=== PATIENT | female | born 1955 | race African-American/Black ===

== ENCOUNTER → 2016-11-30 | Outpatient (CLI) | payer MEDICARE, OTHER, MEDICAID ==
--- NOTE | 2016-11-30 15:28 | RADIOLOGY REPORT (SQ) ---
EXAM DESCRIPTION: MRI HEAD COMBO COMPLETED DATE/TIME: 11/30/2016 2:38 pm REASON FOR STUDY: HEADACHE/HX OF BREAST CA R51 HEADACHE C50.919 MALIGNANT NEOPLASM OF UNSP SITE OF UNSPECIFIED FEMAL COMPARISON: None. TECHNIQUE: Multiplanar imaging includes noncontrasted T1, T2, FLAIR, and Diffusion with ADC map seq uences. Contrast enhanced T1 images. Images stored on PACS. CONTRAST TYPE AND DOSE: 15 mL Multihance. RENAL FUNCTION: GFR > 60. LIMITATIONS: None. FINDINGS: ANATOMY: No anomalies. Normal vascular flow voids. Pituitary fossa normal. CSF SPACES: Normal size and contour. No hemorrhage. CEREBRUM: A few high-signal intensity lesions scattered throughout the white matter on FLAIR imaging with distribution suggesting chronic microvascular ischemic change. Sulci and gyri normal in size and contour. No evidence of hemorrhage, mass or extraaxial fluid collection. No enhancing lesions. POSTERIOR FOSSA: No signal alteration. No hemorrhage. No edema, masses or mass effect. Internal audit ory canals, cerebello-pontine angles, mastoids normal. DIFFUSION: Negative for acute or subacute infarction. ORBITS: No masses. Globes normal. PARANASAL SINUSES: Fluid is noted in the alveolar recess of the left maxillary sinus. There is scatt ered mucosal thickening of the ethmoid sinuses. The paranasal sinuses are otherwise clear. Small am ount of fluid seen in the at left mastoid. OTHER: No other significant finding. IMPRESSION: NO ENHANCING LESIONS. MINIMAL MICROVASCULAR ISCHEMIC CHANGE. OTHERWISE NORMAL STUDY. Sm all amount of fluid seen within the left maxillary sinus in the mastoid air cells. Mild mucosal thic kening of the ethmoid sinuses. TECHNICAL DOCUMENTATION: JOB ID: [id number] [employer]- All Rights Reserved
== END ==
LOC: RAD 13:27
PROVIDERS: ATTEND Internal Medicine Medical Oncology
DX: C50.912 Malignant neoplasm of unspecified site of left female breast (principal); R51 Headache
CPT/HCPCS: 82565; 70553; A9577

== ENCOUNTER → 2016-12-06 | Outpatient (CLI) | payer MEDICARE, OTHER, MEDICAID ==
--- NOTE | 2016-12-06 17:16 | WOMENS IMAGING REPORT ---
EXAM DESCRIPTION: RIGHT DIAGNOSTIC MAMMO W/CAD; U/S BREAST UNILATERAL, COMPL COMPLETED DATE/TIME: 12/06/2016 1:24 pm; 12/06/2016 2:07 pm REASON FOR STUDY: C50.912; R97.8 C50.912 MALIGNANT NEOPLASM OF UNSPECIFIED SITE OF LEFT FEMAL COMPARISON: Multiple mammograms since 2009 TECHNIQUE: Standard craniocaudal, 90 mediolateral and mediolateral oblique images of the right dwain st recorded with digital acquisition. Post left mastectomy in 2009 Right breast and axilla ultrasound was also performed today LIMITATIONS: None. FINDINGS: BREAST: Right MASSES: No suspicious masses. CALCIFICATIONS: Stable benign calcifications in the central right breast. ARCHITECTURAL DISTORTION: None. DEVELOPING DENSITY: None. ASYMMETRY: None noted. OTHER: No skin thickening. No axillary lesions are identified by mammography Read with the assistance of CAD. .[facility] - R2 Cenova Version 1.3 .[facility] Imaging - R2 Cenova Version 1.3 .[facility] Imaging - R2 Cenova Version 2.4 .[facility] - R2 Cenova Version 2.4 .[facility] - R2 Order Processing Specialist Version 9.2 Ultrasound right breast and axilla: Ultrasound of the entire right breast and axilla was performed. No enlarged or worrisome right axill carlos lymph nodes. No focal breast parenchymal findings. No cysts. No masses. No worrisome acoustic absorption. IMPRESSION: No mammographic or sonographic evidence for malignancy right breast. BREAST DENSITY: c. The breasts are heterogeneously dense, which may obscure small masses. BIRAD: 2 Benign findings. RECOMMENDATION: RECOMMENDED FOLLOW UP: Please continue to yearly right breast mammograms in November. Consider tomosynthesis given heterogeneously dense tissue. SPECIFIC INTERVENTION/IMAGING/CONSULTATION RECOMMENDED:No additional intervention/ imaging/consultati on needed at this time. COMMUNICATION:Patient notified by letter COMMENT: The patient has been notified of the results by letter per MQSA requirements. Additional no tification policies are in place for contacting patient with suspicious or incomplete findings. Quality ID #[id number]: The [employer] recommends an annual screening mammogram for women aged 40 years or over. This facility utilizes a reminder system to ensure that all patients receive reminder letters, and/or direct phone calls for appointments. This includes reminders for routine scr eening mammograms, diagnostic mammograms, or other Breast Imaging Interventions when appropriate. Th is patient will be placed in the appropriate reminder system. The [employer] (ACR) has developed recommendations for screening MRI of the breast s in certain patient populations, to be used in conjunction with mammography. Breast MRI surveillanc e may be appropriate for women with more than 20% lifetime risk of developing breast cancer as deter mined by genetic testing, significant family history of the disease, or history of mantle radiation f or Hodgkins Disease. ACR Practice Guidelines 2008. TECHNICAL DOCUMENTATION: FINDING NUMBER: (1) ASSESSMENT: (1) JOB ID: [id number] [employer]- All Rights Reserved
--- NOTE | 2016-12-06 17:16 | WOMENS IMAGING REPORT ---
EXAM DESCRIPTION: RIGHT DIAGNOSTIC MAMMO W/CAD; U/S BREAST UNILATERAL, COMPL COMPLETED DATE/TIME: 12/06/2016 1:24 pm; 12/06/2016 2:07 pm REASON FOR STUDY: C50.912; R97.8 C50.912 MALIGNANT NEOPLASM OF UNSPECIFIED SITE OF LEFT FEMAL COMPARISON: Multiple mammograms since 2009 TECHNIQUE: Standard craniocaudal, 90 mediolateral and mediolateral oblique images of the right dwain st recorded with digital acquisition. Post left mastectomy in 2009 Right breast and axilla ultrasound was also performed today LIMITATIONS: None. FINDINGS: BREAST: Right MASSES: No suspicious masses. CALCIFICATIONS: Stable benign calcifications in the central right breast. ARCHITECTURAL DISTORTION: None. DEVELOPING DENSITY: None. ASYMMETRY: None noted. OTHER: No skin thickening. No axillary lesions are identified by mammography Read with the assistance of CAD. .[facility] - R2 Cenova Version 1.3 .[facility] Imaging - R2 Cenova Version 1.3 .[facility] Imaging - R2 Cenova Version 2.4 .[facility] [place] - R2 Cenova Version 2.4 .[facility] - R2 Food Service Driver Version 9.2 Ultrasound right breast and axilla: Ultrasound of the entire right breast and axilla was performed. No enlarged or worrisome right axill carlos lymph nodes. No focal breast parenchymal findings. No cysts. No masses. No worrisome acoustic absorption. IMPRESSION: No mammographic or sonographic evidence for malignancy right breast. BREAST DENSITY: c. The breasts are heterogeneously dense, which may obscure small masses. BIRAD: 2 Benign findings. RECOMMENDATION: RECOMMENDED FOLLOW UP: Please continue to yearly right breast mammograms in November. Consider tomosynthesis given heterogeneously dense tissue. SPECIFIC INTERVENTION/IMAGING/CONSULTATION RECOMMENDED:No additional intervention/ imaging/consultati on needed at this time. COMMUNICATION:Patient notified by letter COMMENT: The patient has been notified of the results by letter per MQSA requirements. Additional no tification policies are in place for contacting patient with suspicious or incomplete findings. Quality ID #[id number]: The [employer] recommends an annual screening mammogram for women aged 40 years or over. This facility utilizes a reminder system to ensure that all patients receive reminder letters, and/or direct phone calls for appointments. This includes reminders for routine scr eening mammograms, diagnostic mammograms, or other Breast Imaging Interventions when appropriate. Th is patient will be placed in the appropriate reminder system. The [employer] (ACR) has developed recommendations for screening MRI of the breast s in certain patient populations, to be used in conjunction with mammography. Breast MRI surveillanc e may be appropriate for women with more than 20% lifetime risk of developing breast cancer as deter mined by genetic testing, significant family history of the disease, or history of mantle radiation f or Hodgkins Disease. ACR Practice Guidelines 2008. TECHNICAL DOCUMENTATION: FINDING NUMBER: (1) ASSESSMENT: (1) JOB ID: [id number] [employer]- All Rights Reserved
== END ==
LOC: WI 13:00
PROVIDERS: ATTEND Internal Medicine Medical Oncology
DX: C50.912 Malignant neoplasm of unspecified site of left female breast (principal); R97.8 Other abnormal tumor markers
CPT/HCPCS: 76641; G0206

== ENCOUNTER → 2016-12-13 | Outpatient (CLI) | payer MEDICARE, OTHER, MEDICAID ==
--- NOTE | 2016-12-13 14:32 | RADIOLOGY REPORT (SQ) ---
EXAM DESCRIPTION: NM WHOLE BODY BONE SCAN COMPLETED DATE/TIME: 12/13/2016 2:01 pm REASON FOR STUDY: BREAST CANCER, BONE PAIN C50.912 MALIGNANT NEOPLASM OF UNSPECIFIED SITE OF LEFT F EMAL M89.8X9 OTHER SPECIFIED DISORDERS OF BONE, UNSPECIFIED SITE COMPARISON: 12/17/2014 RADIONUCLIDE AND DOSE: 20 millicuries Tc99m MDP. The route of agent administration: Intravenous. ADDITIONAL DRUGS AND DOSES: None. TECHNIQUE: Routine delayed images at 3 hours post radionuclide injection acquired of the bony skelet on including anterior and posterior whole-body projections and additional focused images as needed. LIMITATIONS: None. FINDINGS: BONES: Normal visualization without areas of photopenia or increased bony uptake of radiop harmaceutical. KIDNEYS: There is prominence of the upper calices, left more than right. OTHER: No other significant finding. IMPRESSION: 1. There is no evidence of metastatic disease to bone. 2. There is prominence of the upper calices bilaterally, left more so than the right. Is there clin ical history of urinary obstruction or perhaps chronic UPJ obstruction? COMMENT: PQRS 3570F: Current bone scan is compared with any available plain radiographs, prior bone scans, and CT/MRI. TECHNICAL DOCUMENTATION: JOB ID: [id number] [employer]- All Rights Reserved
== END ==
LOC: RAD 09:23
PROVIDERS: ATTEND Internal Medicine Medical Oncology
DX: C50.912 Malignant neoplasm of unspecified site of left female breast (principal); M89.8X9 Other specified disorders of bone, unspecified site
CPT/HCPCS: 78306; A9561; Q9969

== ENCOUNTER 2016-12-19 21:26 | Emergency (ER) | payer MEDICARE, OTHER, MEDICAID ==
[2016-12-20] MEDS ORDERED: LORATADINE 10 MG TABLET PO ONE (00:22)
[2016-12-20] MEDS ORDERED: IBUPROFEN 600 MG TABLET PO ONE (00:22)
[2016-12-20] MEDS ORDERED: AZITHROMYCIN 250 MG TABLET PO ONE (00:22)
--- NOTE | 2016-12-20 00:26 | ER Document Report ---
ED General - General Chief Complaint: L earache Stated Complaint: EAR PAIN Time Seen by Provider: 12/19/16 23:37 Notes: Patient is a 61 year old female who presents with several days of progressively worsening left ear pain. Does describe as a severe, constant, throbbing pain. Nothing improves or worsens the pain. States that she saw ENT earlier today who told her that there is nothing wrong with her ear. Denies any history of similar symptoms in the past. Denies any history of loss. No fever or constitutional symptoms. TRAVEL OUTSIDE OF THE [place] IN LAST 30 DAYS: No - Related Data Allergies/Adverse Reactions: Penicillins Allergy (Verified 04/07/14 16:24) Past Medical History - General Information source: Patient - Social History Smoking Status: Never Smoker Frequency of alcohol use: None Drug Abuse: None Lives with: Family Family History: Reviewed & Not Pertinent Renal/ Medical History: Denies: Hx Peritoneal Dialysis Past Surgical History: Reports: Hx Breast Surgery - left mastectomy - Immunizations Hx Diphtheria, Pertussis, Tetanus Vaccination: - unknown Review of Systems - Review of Systems Notes: Constitutional: Negative for fever. HENT: Positive for left ear pain Eyes: Negative for visual changes. Cardiovascular: Negative for chest pain. Respiratory: Negative for shortness of breath. Gastrointestinal: Negative for abdominal pain, vomiting or diarrhea. Genitourinary: Negative for dysuria. Musculoskeletal: Negative for back pain. Skin: Negative for rash. Neurological: Negative for headaches, weakness or numbness. 10 point ROS negative except as marked above and in HPI. Physical Exam - Vital signs Vitals: Temp Pulse Resp BP Pulse Ox 98.4 F 77 16 148/84 H 100 12/20/16 00:32 12/20/16 00:32 12/20/16 00:32 12/20/16 00:32 12/20/16 00:32 Interpretation: Hypertensive Notes: PHYSICAL EXAMINATION: GENERAL: Well-appearing, well-nourished and in no acute distress. HEAD: Atraumatic, normocephalic. EYES: sclera anicteric, conjunctiva are normal. ENT: Moist mucous membranes. TMs are bulging bilaterally but the left TM has a purulent effusion with Erythema over the tympanic membrane. NECK: Normal range of motion LUNGS: Normal work of breathing HEART: 2+ radial pulses bilaterally EXTREMITIES: no pitting or edema. No cyanosis. NEUROLOGICAL: No focal neurological deficits. Moves all extremities spontaneously and on command. PSYCH: Normal mood, normal affect. SKIN: Warm, Dry, normal turgor, no rashes or lesions noted. Course - Re-evaluation Re-evalutation: 12/20/16 00:23 Patient presents with a history and exam findings consistent with an acute left otitis media. The TMs are bulging bilaterally but the left TM also has a purulent effusion with erythema on the tympanic membrane. No evidence of otitis externa. No pain over the mastoids. She will be started on azithromycin given her penicillin allergy, ibuprofen and loratadine as I suspect an allergic component given the time of year and patient's history. At this time will discharge with return precautions and follow-up recommendations. Verbal discharge instructions given a the bedside and opportunity for questions given. Medication warnings reviewed. Patient is in agreement with this plan and has verbalized understanding of return precautions and the need for primary care follow-up in the next 24-72 hours. - Vital Signs Vital signs: Temp Pulse Resp BP Pulse Ox 98.4 F 77 16 148/84 H 100 12/20/16 00:32 12/20/16 00:32 12/20/16 00:32 12/20/16 00:32 12/20/16 00:32 Discharge - Discharge Clinical Impression: Left otitis media Qualifiers: Otitis media type: suppurative Chronicity: acute Recurrence: not specified as recurrent Spontaneous tympanic membrane rupture: without spontaneous rupture Qualified Code(s): H66.002 - Acute suppurative otitis media without spontaneous rupture of ear drum, left ear Condition: Good Disposition: HOME, SELF-CARE Additional Instructions: You have a left-sided ear infection. Please take the antibiotics as prescribed. You should begin taking loratadine 10 mg daily as this will help with your allergies and may help control recurrent ear infections. Please return if you develop worsening pain, fever greater than 101F, or any other symptoms that are worrisome to you. Prescriptions: Azithromycin 500 mg PO DAILY #4 tablet Referrals: ALEX MERRITT, MALIKC [Primary Care Provider] - Follow up as needed
[2016-12-20 00:33] VITALS: BP 148/84
== END 2016-12-20 00:33 | disposition home or self-care (01) ==
LOC: ER 21:26
DX: H66.002 Acute suppurative otitis media without spontaneous rupture of ear drum, left ear (principal); H92.02 Otalgia, left ear; Z88.0 Allergy status to penicillin
CPT/HCPCS: 99282; A9270 ×3

== ENCOUNTER → 2017-01-08 | Outpatient (CLI) | payer MEDICARE, OTHER, MEDICAID ==
--- NOTE | 2017-01-09 09:16 | RADIOLOGY REPORT (SQ) ---
EXAM DESCRIPTION: PET CT SKULL/THIGH COMPLETED DATE/TIME: 01/08/2017 9:52 pm REASON FOR STUDY: BREAST CANCER C50.912 MALIGNANT NEOPLASM OF UNSPECIFIED SITE OF LEFT FEMAL M89.8X 9 OTHER SPECIFIED DISORDERS OF BONE, UNSPECIFIED SITE COMPARISON: 12/21/2014. RADIONUCLIDE AND DOSE: 12.0 mCi F18 FDG The route of agent administration: Intravenous FASTING BLOOD SUGAR: 99 mg/dl CONTRAST TYPE AND DOSE: No CT contrast given. TECHNIQUE: Blood glucose level was verified. Above dose of FDG was injected intravenously. 2-D seg mented attenuation correction images were obtained from the base of the skull to the midthighs. Nonc ontrast CT images were obtained for attenuation correction and fusion with emission images. CT image s were performed without oral or intravenous contrast and are not sensitive for parenchymal lesions. A series of overlapping emission PET images were obtained. Images reviewed and manipulated at [facility] work station by the radiologist. Images stored on PACS. LIMITATIONS: None. FINDINGS: HEAD AND NECK: No areas of abnormal metabolic activity in the soft tissues of the head and neck. CHEST: No areas of abnormal metabolic activity in the chest. ABDOMEN AND PELVIS: No areas of abnormal metabolic activity in the abdomen or pelvis. Expected physi ologic activity is present in the genitourinary system and bowel. PROXIMAL LOWER EXTREMITIES: No areas of abnormal metabolic activity in the soft tissues of the lower extremities. BONES: No abnormal metabolic activity in the visualized skeleton. ADDITIONAL CT FINDINGS: No additional significant findings on the noncontrast CT images. Left mastec ishan and axillary dissection. OTHER: No other significant findings. IMPRESSION: UNREMARKABLE PET-CT. NO EVIDENCE OF RECURRENT DISEASE OR METASTASIS. TECHNICAL DOCUMENTATION: JOB ID: [id number]- All Rights Reserved
== END ==
LOC: RAD 19:08
PROVIDERS: ATTEND Internal Medicine Medical Oncology
DX: C50.912 Malignant neoplasm of unspecified site of left female breast (principal); M89.8X9 Other specified disorders of bone, unspecified site
CPT/HCPCS: 78815; A9552

== ENCOUNTER 2017-05-28 21:39 | Emergency (ER) | payer MEDICARE, OTHER, MEDICAID ==
[2017-05-28] MEDS ORDERED: OXYCODONE-ACETAMINOPHEN 5-325 MG TABLET PO ONE (22:57)
--- NOTE | 2017-05-28 23:03 | ER Document Report ---
ED Skin Rash/Insect Bite/Abscs - General Chief Complaint: Skin Problem Stated Complaint: POSSIBLE RASH Time Seen by Provider: 05/28/17 22:13 Mode of Arrival: Ambulatory Information source: Patient Notes: Patient is a 61-year-old black female comes emergency room complaining of left sided chest rash. Patient states she went to her primary care which is a walk- in clinic 1 week ago and they diagnosed her with shingles and placed her on acyclovir which she is still currently taking without much relief. Patient states that the area still very sensitive and very itchy and she has a hard time sleeping at night. She also states they did not put her on any gabapentin or any pain medication for this presentation. She has never had shingles in her life before and this is starting to bother her every day life. 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 TRAVEL OUTSIDE OF THE [place] IN LAST 30 DAYS: No - HPI Patient complains to provider of: Skin rash/lesion Onset: Last week Onset/Duration: Sudden, Worse Quality of pain: Burning, Throbbing, Other - Itching Severity: Moderate Skin Character: Macules, Papules, Patchy, Petechial Skin Temperature: Warm Quality of rash: Itchy, Painful Identify cause: Yes - Shingles Exacerbated by: Other - Movement touching of close etc. Relieved by: Denies Similar symptoms previously: Yes Recently seen / treated by doctor: Yes - Related Data Allergies/Adverse Reactions: Penicillins Allergy (Verified 04/07/14 16:24) Past Medical History - General Information source: Patient - Social History Smoking Status: Never Smoker Cigarette use (# per day): No Chew tobacco use (# tins/day): No Smoking Education Provided: No Frequency of alcohol use: None Drug Abuse: None Family History: Reviewed & Not Pertinent Patient has suicidal ideation: No Patient has homicidal ideation: No Renal/ Medical History: Denies: Hx Peritoneal Dialysis Past Surgical History: Reports: Hx Breast Surgery - left mastectomy - Immunizations Hx Diphtheria, Pertussis, Tetanus Vaccination: - unknown Review of Systems - Review of Systems Constitutional: No symptoms reported EENT: No symptoms reported Cardiovascular: No symptoms reported Respiratory: No symptoms reported Gastrointestinal: No symptoms reported Genitourinary: No symptoms reported Female Genitourinary: No symptoms reported Musculoskeletal: No symptoms reported Skin: Rash Hematologic/Lymphatic: No symptoms reported Neurological/Psychological: No symptoms reported, Tingling -: Yes All other systems reviewed and negative Physical Exam - Vital signs Vitals: Temp Pulse Resp BP Pulse Ox 98.8 F 78 22 H 152/75 H 97 05/28/17 21:51 05/28/17 21:51 05/28/17 21:51 05/28/17 21:51 05/28/17 21:51 Interpretation: Hypertensive - General General appearance: Alert, Other - Respiratory Respiratory status: No respiratory distress Chest status: Nontender Breath sounds: Normal. No: Decreased air movement, Nonproductive cough, Productive cough, Rales, Rhonchi, Stridor, Wheezing, Other - Cardiovascular Rhythm: Regular Heart sounds: Normal auscultation Murmur: No - Neurological Neuro grossly intact: Yes Cognition: Normal Orientation: AAOx4 Filippo Coma Scale Eye Opening: Spontaneous [place] Coma Scale Verbal: Oriented Filippo Coma Scale Motor: Obeys Commands Filippo Coma Scale Total: 15 Speech: Normal - Skin Skin Temperature: Warm Skin Moisture: Dry Skin Color: Cyanotic Skin irregularity: Rash Character of irregularity: Maculopapular, Other - Examination of patient's left lower lateral chest shows patient at the patchy distribution of maculopapular rash that has clear vesicles in some areas and dried ruptured vesicles and others. Very tender to touch. Runs along the dermatome coming down to the lower left rib area. Definite presentation of shingles noted. Irregularity with: Tenderness Course - Vital Signs Vital signs: Temp Pulse Resp BP Pulse Ox 98.8 F 78 22 H 152/75 H 97 05/28/17 21:51 05/28/17 21:51 05/28/17 21:51 05/28/17 21:51 05/28/17 21:51 - Transfer of Care Notes: 05/28/17 23:03 Patient is still currently on acyclovir so we will leave her stay on that. I will place her on gabapentin 300 mg at night to start with. And some pain medication. I have recommended to her to go back to her primary care which is the walk-in clinic have them for reevaluation and for further pain control. Discharge - Discharge Clinical Impression: Shingles rash Qualifiers: Herpes zoster complications: without complications Qualified Code(s): B02.9 - Zoster without complications Condition: Good Disposition: HOME, SELF-CARE Instructions: Acetaminophen, Shingles ([facility]) Additional Instructions: Home and rest. As we have indicated continue with the medication were placed on by the your primary physician. This is an antiviral which may help with reducing the intensity of the outbreak as well as shortening the duration. I will place her on pain medication and on another medication that should help with the discomfort called gabapentin we have started with 3 mg at night and highly suggest that you follow-up with your primary care provider within the next 48 hours for reevaluation and possible increased dosage of the gabapentin. Should you have any concerns or problems return to ER for a recheck. As I discussed with you wash her hands frequently as long as the area is covered or not contagious. I would however not do any patient care for the next 4-5 days. Also when these areas try very well you can place a patch called Lidoderm on top of it which will help with the nerve ending discomfort however they must be completely 100% dry before you do this. You may want to discuss this with your primary care. Prescriptions: Gabapentin 300 mg PO QHS #20 capsule Hydroxyzine HCl 50 mg PO TID PRN #20 tablet PRN Reason: Oxycodone HCl/Acetaminophen [Percocet 7.5-325 mg Tablet] 1 each PO ASDIR PRN # 20 tablet PRN Reason: Referrals: ENRIQUE ALVARADO MD [Primary Care Provider] - Follow up as needed
[2017-05-28] MEDS ORDERED: HYDROCODONE/ACETAMINOPHEN 5-325 MG 6 TAB/DSPK PO PRN (23:22)
[2017-05-28 23:23] VITALS: BP 155/83
== END 2017-05-28 23:29 | disposition home or self-care (01) ==
LOC: ER 21:39
DX: B02.9 Zoster without complications (principal); Z88.0 Allergy status to penicillin
CPT/HCPCS: 99283; A9270 ×2

== ENCOUNTER 2017-11-08 21:50 | Emergency (ER) | payer MEDICARE, OTHER, MEDICAID ==
[2017-11-08 22:07] VITALS: BP 159/76
--- NOTE | 2017-11-08 23:37 | ER Document Report ---
HPI - HPI Patient complains to provider of: right hand pain Pain Level: 4 Context: Patient is a 62-year-old female who comes emergency department for chief complaint of right hand and right wrist pain. Pain is been present for 2 weeks , unsure of injury, seen by primary care and placed on ibuprofen, states she has been taking it without relief. She denies history of the same, she is left- handed. She denies any other complaints. She denies any daily medications otherwise. - REPRODUCTIVE Reproductive: DENIES: : - MUSCULOSKELETAL Musculoskeletal: REPORTS: Extremity pain - R wrist/thumb Past Medical History - General Information source: Patient - Social History Smoking Status: Never Smoker Chew tobacco use (# tins/day): No Frequency of alcohol use: None Drug Abuse: None Lives with: Family Family History: Reviewed & Not Pertinent Patient has suicidal ideation: No Patient has homicidal ideation: No - Medical History Medical History: Negative Renal/ Medical History: Denies: Hx Peritoneal Dialysis Past Surgical History: Reports: Hx Breast Surgery - left mastectomy - Immunizations Immunizations up to date: Yes Hx Diphtheria, Pertussis, Tetanus Vaccination: Yes - unknown Vertical Provider Document - CONSTITUTIONAL General Appearance: WD/WN, No Apparent Distress - INFECTION CONTROL TRAVEL OUTSIDE OF THE [place] IN LAST 30 DAYS: No - HEENT HEENT: Atraumatic, Normal ENT Exam, Normocephalic - NECK Neck: Normal Inspection - RESPIRATORY Respiratory: Breath Sounds Normal, No Respiratory Distress - CARDIOVASCULAR Cardiovascular: Regular Rate, Regular Rhythm - GI/ABDOMEN Gastrointestinal: Abdomen Soft, Abdomen Non-Tender - BACK Back: Normal Inspection - MUSCULOSKELETAL/EXTREMETIES Musculoskeletal/Extremeties: Tender - mild tenderness in the right wrist generally, but no snuffbox tenderness, no swelling, normal ROM; tenderness mainly over the thenar area; no abnormal erythema; normal N/V exam Course - Re-evaluation Re-evalutation: Exam does not show snuffbox tenderness, no evidence of infection, no neurological deficits or concerning findings, x-ray showing arthritis but no fracture. Will continue to conservative measures, discussed these in detail with patient, discussed follow-up and return precautions, patient states understanding and agreement. - Vital Signs Vital signs: Temp Pulse Resp BP Pulse Ox 98.1 F 75 20 159/76 H 100 11/08/17 22:05 11/08/17 22:05 11/08/17 22:05 11/08/17 22:05 11/08/17 22:05 Discharge - Discharge Clinical Impression: Right hand pain, Right wrist pain Condition: Stable Disposition: HOME, SELF-CARE Additional Instructions: The x-rays show arthritis in your hand/wrist, this is probably the cause of the inflammation and pain that you have currently. Recommendation is to take up to 800 mg of ibuprofen up to 3 times daily (do this with food and drink plenty of water to avoid stomach or kidney irritation) , apply ice to the hand/wrist 3-4 times a day for 10-15 minutes, wear the supportive brace, and rest the wrist. Follow-up with primary care for additional evaluation and management. Return for any concerning symptoms including redness, swelling, severe pain, or any other concerning symptoms.
--- NOTE | 2017-11-09 00:08 | RADIOLOGY REPORT (SQ) ---
EXAM DESCRIPTION: XR HAND 3 OR MORE VIEWS, XR WRIST 3 OR MORE VIEWS CLINICAL HISTORY: 62 years Female, pain, ?injury COMPARISON: None. Findings: Mild osteoarthritis involves the radiocarpal joint and first carpometacarpal joint.. Bones, joints, and soft tissues of the XR HAND /WRIST RIGHT 6V appear otherwise intact. IMPRESSION: No acute findings. Mild osteoarthritis.
[2017-11-09] MEDS ORDERED: HYDROCODONE/ACETAMINOPHEN 5-325 MG (6 TAB/ER DISP) PO PRN (00:26)
== END 2017-11-09 00:41 | disposition home or self-care (01) ==
LOC: ER 21:50
DX: M79.641 Pain in right hand (principal); M25.531 Pain in right wrist
CPT/HCPCS: 99283; 73130; 73110; A9270

== ENCOUNTER 2018-05-17 03:07 | Emergency (ER) | payer MEDICARE, OTHER, MEDICAID ==
[2018-05-17 03:13] VITALS: BP 170/56
--- NOTE | 2018-05-17 03:38 | ER Document Report ---
ED General - General Chief Complaint: Hand Swelling Stated Complaint: HAND SWOLLEN Time Seen by Provider: 05/17/18 03:17 TRAVEL OUTSIDE OF THE U.S. IN LAST 30 DAYS: No - HPI Pain Level: 5 Notes: 62-year-old female with past medical history of breast cancer status post mastectomy and lymphadenectomy in 2011 presents to the emergency department for left upper extremity swelling that started 2 days ago but became worse yesterday. She states she had one previous episode of lymphedema shortly after her mastectomy but has had no issues with her arm since. She does endorse swelling, pain with movement. She denies warmth to the extremity, limited range of motion. She denies dizziness, lightheadedness, headache, dyspnea, palpitations, chest pain, nausea, vomiting, lower extremity edema. - Related Data Allergies/Adverse Reactions: Penicillins Allergy (Verified 11/08/17 23:26) Past Medical History - General Information source: Patient - Social History Smoking Status: Never Smoker Frequency of alcohol use: None Drug Abuse: None Family History: Reviewed & Not Pertinent Renal/ Medical History: Denies: Hx Peritoneal Dialysis Past Surgical History: Reports: Hx Breast Surgery - left mastectomy - Immunizations Immunizations up to date: Yes Hx Diphtheria, Pertussis, Tetanus Vaccination: Yes - unknown Review of Systems - Review of Systems Constitutional: See HPI EENT: See HPI Cardiovascular: See HPI Respiratory: See HPI Gastrointestinal: See HPI Genitourinary: No symptoms reported Female Genitourinary: No symptoms reported Musculoskeletal: No symptoms reported Skin: See HPI Hematologic/Lymphatic: No symptoms reported Neurological/Psychological: No symptoms reported Physical Exam - Vital signs Vitals: Temp Pulse Resp BP Pulse Ox 97.6 F 74 15 170/56 H 98 05/17/18 03:12 05/17/18 03:12 05/17/18 03:12 05/17/18 03:12 05/17/18 03:12 - Notes Notes: Reviewed vital signs and nursing note as charted by RN. CONSTITUTIONAL: Well-appearing, well-nourished, acting appropriately for age HEAD: Normocephalic, atraumatic, no swelling EYES: PERRL, Conjunctivae clear, no drainage, EOMI, no scleral icterus ENT: External ears without lesions, External auditory canal is patent, TMs without erythema, landmarks clear and well visualized, no rhinorrhea, Pharynx without erythema or lesions, no tonsillar hypertrophy, airway patent, mucous membranes pink and moist NECK: Supple, no cervical lymphadenopathy, no masses CARD: Regular rate and rhythm, no murmurs, no rubs, no gallops, capillary refill < 2 seconds, symmetric pulses RESP: The lungs are clear to auscultation bilaterally, no wheezing, no rales, no rhonchi. Respiratory rate and effort are normal, normal chest excursion. No respiratory distress, no retractions, no stridor, no nasal flaring, no accessory muscle use. ABD/GI: Normal bowel sounds, non-distended, soft, non-tender, no rebound, no guarding, no palpable organomegaly EXT: Left upper extremity swelling of the entire extremity, nonpitting, no erythema of the extremity, mild tenderness to palpation, no tenderness to palpation along the superficial veins. Normal ROM in all joints, non-tender to palpation, no effusions SKIN: Normal color for age and race, warm, dry, good turgor, no acute lesions noted NEURO: No facial asymmetry, moves all extremities equally, motor and sensory function intact exam Course - Re-evaluation Re-evalutation: 05/17/18 04:00 Upper extremity swelling most likely due to lymphedema. Patient's compartments were soft, no evidence of superficial venous tenderness, Refill less than 2 seconds, strong radial pulse, no erythem, skin was warm and dry. Do not believe this is cellulitis. Because of the patient's history I we want to rule out DVT. Because we do not have orthotics prosthetics technician currently in-house the patient was given 3 options: One is to stay in the emergency department for the next 3+ hours and we have the orthotics prosthetics technician to arrive and get the study; another is to discharge from the urgency department and check back in later this morning when the orthotics prosthetics technician arrives, but patient was warned that she could incur an additional co-pay; and finally she was given the option for a prescription to get an urgent/emergent study at [facility] this morning. Because the patient has insurance she has elected to get a prescription for a left upper extremity venous Doppler at [facility]. She said she will call this morning and follow-up and make an appointment. 05/17/18 04:03 - Vital Signs Vital signs: Temp Pulse Resp BP Pulse Ox 97.6 F 74 15 170/56 H 98 05/17/18 03:12 05/17/18 03:12 05/17/18 03:12 05/17/18 03:12 05/17/18 03:12 Discharge - Discharge Clinical Impression: Lymphedema Condition: Good Disposition: HOME, SELF-CARE Instructions: Lymphedema ([facility]) Additional Instructions: You were seen in the emergency department this evening for swelling in your left arm. Believe you have lymphedema but we need to ensure that you do not have a DVT. Because we do not have orthotics prosthetics technician in the hospital right now we are writing her prescription for a Doppler ultrasound of her left upper extremity at [facility]. Please call them when they open this morning and let them know you are seen in the emergency department and referred for a left upper extremity venous Doppler. If you become acutely short of breath, or unable to move your arm, have severe pain out of proportion to your activity, her arm starts to turn blue please immediately return to the emergency department. Forms: Follow-Up Outpatient Testing Referrals: CHERELLE MOODY MD [Primary Care Provider] - Follow up as needed
== END 2018-05-17 04:25 | disposition home or self-care (01) ==
LOC: ER 03:07
DX: I89.0 Lymphedema, not elsewhere classified (principal); Z85.3 Personal history of malignant neoplasm of breast; Z90.12 Acquired absence of left breast and nipple; Z88.0 Allergy status to penicillin
CPT/HCPCS: 99283

== ENCOUNTER → 2018-05-23 | Outpatient (CLI) | payer MEDICARE, OTHER, MEDICAID ==
--- NOTE | 2018-05-24 10:01 | XCELERA REPORT ---
[address] [address] Upper Extremity Venous Evaluation Name: BRIA CHAMBERS Age: 62 yrs Gender: Female : 1955 Patient Status: Outpatient Patient Location: Study Date: 05/23/2018 01:25 PM Procedure: Unilateral duplex scan of the left upper extremity veins was performed, including responses to compression and other maneuvers. Reason For Study: LYDIA RIBERA Ordering Physician: JOSH MARIA PA-C Performed By: Zander Schmitt Left Sided Venous Evaluation Normal vessel filling wall to wall, compression and augmentation as well as Colour flow down to the forearm veins. Interpretation Summary No duplex evidence of DVT or obstruction in the left upper extremity. : JOSH MARIA PA-C > Pawel Rojas
== END ==
LOC: SP 12:49
PROVIDERS: ATTEND Physician Assistant
DX: R22.32 Localized swelling, mass and lump, left upper limb (principal)
CPT/HCPCS: 93971

== ENCOUNTER 2018-06-18 17:54 | Emergency (ER) | payer MEDICARE, OTHER, MEDICAID ==
[2018-06-18 18:01] VITALS: BP 129/69
--- NOTE | 2018-06-18 19:49 | ER Document Report ---
ED General - General Chief Complaint: Arm Pain Stated Complaint: LEFT ARM PAIN Time Seen by Provider: 06/18/18 18:57 Notes: 62-year-old female with past medical history of breast cancer status post mastectomy and lymphadenectomy in 2011 presents to the emergency department for left upper extremity swelling that has been persistent since her last visit here about 1 month ago. She was sent for a venous Doppler ultrasound after her last visit and the results was negative for DVT. She states that the swelling has not gone down at all since her last visit and she has been in pain but decided that was finally time to get re-seen. She denies fevers, chills, nausea. She endorses fatigue. She denies chest pain or shortness of breath. Endorses swelling and pain in her left upper extremity. She does not have a primary care doctor. TRAVEL OUTSIDE OF THE [place] IN LAST 30 DAYS: No - Related Data Allergies/Adverse Reactions: Penicillins Allergy (Verified 11/08/17 23:26) Past Medical History - General Information source: Patient - Social History Smoking Status: Never Smoker Family History: Reviewed & Not Pertinent Patient has suicidal ideation: No Patient has homicidal ideation: No Renal/ Medical History: Denies: Hx Peritoneal Dialysis Past Surgical History: Reports: Hx Breast Surgery - left mastectomy - Immunizations Immunizations up to date: Yes Hx Diphtheria, Pertussis, Tetanus Vaccination: Yes - unknown Review of Systems - Review of Systems Constitutional: See HPI EENT: No symptoms reported Cardiovascular: See HPI Respiratory: See HPI Gastrointestinal: See HPI Genitourinary: No symptoms reported Female Genitourinary: No symptoms reported Musculoskeletal: No symptoms reported Skin: No symptoms reported Hematologic/Lymphatic: No symptoms reported Neurological/Psychological: See HPI Physical Exam - Vital signs Vitals: Temp Pulse Resp BP Pulse Ox 97.9 F 87 16 129/69 H 98 06/18/18 17:59 06/18/18 17:59 06/18/18 17:59 06/18/18 17:59 06/18/18 17:59 - Notes Notes: Reviewed vital signs and nursing note as charted by RN. CONSTITUTIONAL: Well-appearing, well-nourished, acting appropriately for age HEAD: Normocephalic, atraumatic, no swelling EYES: PERRL, Conjunctivae clear, no drainage, EOMI, no scleral icterus ENT: External ears without lesions, External auditory canal is patent, TMs without erythema, landmarks clear and well visualized, no rhinorrhea, Pharynx without erythema or lesions, no tonsillar hypertrophy, airway patent, mucous membranes pink and moist NECK: Supple, no cervical lymphadenopathy, no masses CARD: Regular rate and rhythm, no murmurs, no rubs, no gallops, capillary refill < 2 seconds, symmetric pulses RESP: The lungs are clear to auscultation bilaterally, no wheezing, no rales, no rhonchi. Respiratory rate and effort are normal, normal chest excursion. No respiratory distress, no retractions, no stridor, no nasal flaring, no accessory muscle use. ABD/GI: Normal bowel sounds, non-distended, soft, non-tender, no rebound, no guarding, no palpable organomegaly EXT: Normal ROM in all joints, non-tender to palpation, no effusions, 2+ nonpitting edema entire left upper extremity. Left upper extremity is warm and dry, strong radial pulse, compartments are soft, no erythema. SKIN: Normal color for age and race, warm, dry, good turgor, no acute lesions noted NEURO: No facial asymmetry, moves all extremities equally, motor and sensory function intact Course - Re-evaluation Re-evalutation: 06/18/18 19:49 8-year-old female with history of breast cancer status post mastectomy and lymphadenectomy 2011 presents to the emergency department for left upper extremity swelling. She was seen here 1 month ago for the same thing and her swelling has never gone down since her last visit. She presents here because she just got sick of the pain and swelling, she has been unable to sleep, as there has been no change in acuity. Strong peripheral pulses good cap refill, compartments are soft, no erythema to indicate cellulitis, she had a venous Doppler of her left upper extremity after the last visit which was negative for DVT. At this time I feel patient needs to follow-up with her oncologist, Dr. Greenberg for potential further imaging. This most likely represents lymphedema that is not resolved. 06/18/18 20:02 06/18/18 20:03 - Vital Signs Vital signs: Temp Pulse Resp BP Pulse Ox 97.9 F 87 16 129/69 H 98 06/18/18 17:59 06/18/18 17:59 06/18/18 17:59 06/18/18 17:59 06/18/18 17:59 Discharge - Discharge Clinical Impression: Lymphedema Condition: Good Disposition: HOME, SELF-CARE Additional Instructions: You were seen in the emergency department this evening for swelling of your left upper extremity. We have diagnosed with lymphedema. It is reassuring because you do not have a DVT based on the ultrasound he received a couple weeks ago. It is important to follow-up with your cancer doctor to assess the need for further imaging. If you develop fever, chills, redness in your extremity, your extremity becomes hot, you develop severe pain, or you pass out please immediately return to the emergency department. Referrals: JOSH MARIA PA-C [Emergency Provider] - Follow up as needed
[2018-06-18] MEDS ORDERED: IBUPROFEN 600 MG TABLET PO ONE (20:05)
[2018-06-18] MEDS ORDERED: ACETAMINOPHEN 325 MG TABLET PO ONE (20:05)
[2018-06-18] MEDS ORDERED: HYDROCODONE/ACETAMINOPHEN 5-325 MG (6 TAB/ER DISP) PO PRN (20:06)
== END 2018-06-18 20:22 | disposition home or self-care (01) ==
LOC: ER 17:54
DX: I89.0 Lymphedema, not elsewhere classified (principal); R53.83 Other fatigue; Z85.3 Personal history of malignant neoplasm of breast; Z90.10 Acquired absence of unspecified breast and nipple; Z90.89 Acquired absence of other organs; Z88.0 Allergy status to penicillin
CPT/HCPCS: 99283; A9270 ×3

== ENCOUNTER → 2018-06-24 | Outpatient (CLI) | payer MEDICARE, OTHER ==
--- NOTE | 2018-06-25 15:27 | RADIOLOGY REPORT (SQ) ---
EXAM DESCRIPTION: PET CT SKULL/THIGH COMPLETED DATE/TIME: 06/24/2018 10:27 pm REASON FOR STUDY: BREAST CANCER C50.912 MALIGNANT NEOPLASM OF UNSPECIFIED SITE OF LEFT FEMAL COMPARISON: PET-CT 01/08/2017 Bone scan 12/13/2016 MRI brain 11/30/2016 RADIONUCLIDE AND DOSE: 9.3 mCi F18 FDG The route of agent administration: Intravenous FASTING BLOOD SUGAR: 100 mg/dl CONTRAST TYPE AND DOSE: No CT contrast given. TECHNIQUE: Blood glucose level was verified. Above dose of FDG was injected intravenously. 2-D seg mented attenuation correction images were obtained from the base of the skull to the midthighs. Nonc ontrast CT images were obtained for attenuation correction and fusion with emission images. CT image s were performed without oral or intravenous contrast and are not sensitive for parenchymal lesions. A series of overlapping emission PET images were obtained. Images reviewed and manipulated at [facility] work station by the radiologist. Images stored on PACS. LIMITATIONS: None. FINDINGS: HEAD AND NECK: No areas of abnormal metabolic activity in the soft tissues of the head and neck. CHEST: No areas of abnormal metabolic activity in the chest. ABDOMEN AND PELVIS: No areas of abnormal metabolic activity in the abdomen or pelvis. Expected physi ologic activity is present in the genitourinary system and bowel. PROXIMAL LOWER EXTREMITIES: No areas of abnormal metabolic activity in the soft tissues of the lower extremities. BONES: No abnormal metabolic activity in the visualized skeleton. ADDITIONAL CT FINDINGS: Right arm central line tip superior vena cava. Left mastectomy and axillary dissection. Post appendectomy. OTHER: No other significant findings. IMPRESSION: No hypermetabolic lesions worrisome for recurrent breast cancer. TECHNICAL DOCUMENTATION: JOB ID: [id number]- All Rights Reserved Reading location - IP/workstation name: [email or web address]
== END ==
LOC: RAD 18:36
PROVIDERS: ATTEND Internal Medicine Medical Oncology
DX: C50.912 Malignant neoplasm of unspecified site of left female breast (principal)
CPT/HCPCS: 78815; A9552

== ENCOUNTER → 2019-05-29 | Outpatient (CLI) | payer MEDICARE, OTHER, MEDICAID ==
--- NOTE | 2019-05-29 14:12 | WOMENS IMAGING REPORT ---
EXAM DESCRIPTION: BONE DENSITY HIP/SPINE COMPLETED DATE/TIME: 05/29/2019 2:00 pm REASON FOR STUDY: M81.0 AGE-RELATED OSTEOPOROSIS WITHOUT CURRENT PATHOLOGICAL FRACTURE M81.0 AGE-RE LATED OSTEOPOROSIS W/O CURRENT PATHOLOGICAL FRAC Z12.31 ENCNTR SCREEN MAMMOGRAM FOR MALIGNANT NEOPLA OF [facility] COMPARISON: None. TECHNIQUE: Dual-Energy X-ray Absorptiometry (DEXA) of the AP Spine and Hip. LIMITATIONS: None. FINDINGS: LUMBAR SPINE: The bone mineral density (BMD) measured from L1-L4 in the AP projection correlates with a T-score of +0.3, which is normal as defined by the World Health Organization. BMD Change vs Baseline: N/A HIP: The bone mineral density (BMD) measured in the left femoral neck at the hip correlates with a T-score of 0, which is normal as defined by the World Health Organization. BMD Change vs Baseline: N/A 10 year Fracture Risk Assessment: Major Osteoporotic Fracture: Not available. Hip Fracture: Not available. IMPRESSION: 1. LUMBAR SPINE WHO CLASSIFICATION: Normal 2. HIP WHO CLASSIFICATION: Normal OVERALL ASSESSMENT: WHO CLASSIFICATION: Normal COMMENT: The World Health Organization defines low BMD as follows: T-score: Normal: Greater than -1.0 Osteopenia: Between -1.0 and -2.5 Osteoporosis: Less than -2.5 without fractures Established osteoporosis: Less than -2.5 with fractures In general, you may wish to consider: Diagnosis Treatment Follow-up DEXA Normal BMD Prevention 2-3 years Osteopenia Prevention/Therapy 1-2 years Osteoporosis Therapy Yearly TECHNICAL DOCUMENTATION: JOB ID: [id number] [employer]- All Rights Reserved Reading location - IP/workstation name: [email or web address]
--- NOTE | 2019-05-29 14:23 | WOMENS IMAGING REPORT ---
EXAM DESCRIPTION: 3D SCREENING MAMMO RIGHT COMPLETED DATE/TIME: 05/29/2019 2:01 pm REASON FOR STUDY: Z12.31 ENCOUNTER FOR SCREENING MAMMOGRAM FOR MALIGNANT NEOPLASM OF BREAST M81.0 A GE-RELATED OSTEOPOROSIS W/O CURRENT PATHOLOGICAL FRAC Z12.31 ENCNTR SCREEN MAMMOGRAM FOR MALIGNANT N EOPLASM OF THIAGO COMPARISON: [id number] EXAM PARAMETERS: Standard craniocaudal and mediolateral oblique views of the breast recorded using d igital acquisition and breast tomosynthesis. Read with the assistance of CAD. .[facility] - [employer] Version 9.2 LIMITATIONS: None. FINDINGS: BREAST LATERALITY: right No suspicious masses, suspicious calcifications or architectural distortion. No areas of concern. IMPRESSION: NEGATIVE MAMMOGRAM. BIRADS 1. BREAST DENSITY: c. The breasts are heterogeneously dense, which may obscure small masses. BIRAD: ASSESSMENT: 1 Negative RECOMMENDATION: RECOMMENDATION: ROUTINE SCREENING. COMMENT: The patient has been notified of the results by letter per SA requirements. Additional no tification policies are in place for contacting patient with suspicious or incomplete findings. Quality ID #[id number]: The [employer] recommends an annual screening mammogram for women aged 40 years or over. This facility utilizes a reminder system to ensure that all patients receive reminder letters, and/or direct phone calls for appointments. This includes reminders for routine scr eening mammograms, diagnostic mammograms, or other Breast Imaging Interventions when appropriate. Th is patient will be placed in the appropriate reminder system. TECHNICAL DOCUMENTATION: FINDING NUMBER: (1) ASSESSMENT: (1) JOB ID: [id number] [employer]- All Rights Reserved Reading location - IP/workstation name: [email or web address]
== END ==
LOC: WI 13:30
PROVIDERS: ATTEND Internal Medicine Hematology & Oncology
DX: Z12.31 Encounter for screening mammogram for malignant neoplasm of breast (principal); M81.0 Age-related osteoporosis without current pathological fracture
CPT/HCPCS: 77080

== ENCOUNTER 2019-06-23 10:35 | Emergency (ER) | payer MEDICARE, OTHER, MEDICAID ==
[2019-06-23] MEDS ORDERED: KETOROLAC TROMETHAMINE 60 MG/2 ML SDV IM ONE (11:38)
--- NOTE | 2019-06-23 11:38 | ER Document Report ---
HPI - HPI Time Seen by Provider: 06/23/19 11:35 Notes: 63-year-old female patient presented emergency department with right index finger pain. Patient reports sometimes her finger gets locked up. She denies any known injury. - REPRODUCTIVE Reproductive: DENIES: : Past Medical History - General Information source: Patient - Social History Smoking Status: Never Smoker Frequency of alcohol use: None Drug Abuse: None Family History: Reviewed & Not Pertinent - Medical History Medical History: Negative Renal/ Medical History: Denies: Hx Peritoneal Dialysis Past Surgical History: Reports: Hx Breast Surgery - left mastectomy - Immunizations Immunizations up to date: Yes Hx Diphtheria, Pertussis, Tetanus Vaccination: Yes - unknown Vertical Provider Document - CONSTITUTIONAL Notes: PHYSICAL EXAMINATION: GENERAL: Well-appearing, well-nourished and in no acute distress. HEAD: Atraumatic, normocephalic. EYES: Pupils equal round extraocular movements intact, conjunctiva are normal. ENT: Nares patent NECK: Normal range of motion LUNGS: No respiratory distress Musculoskeletal: Normal range of motion to right index finger, slight pain with range of motion however no swelling, erythema or heat noted. Cap refill less than 3 seconds. Strong radial pulse. Full motor and sensation. NEUROLOGICAL: Normal speech, normal gait. PSYCH: Normal mood, normal affect. SKIN: Warm, Dry, normal turgor, no rashes or lesions noted. - INFECTION CONTROL TRAVEL OUTSIDE OF THE [place] IN LAST 30 DAYS: No Course - Re-evaluation Re-evalutation: Finger X-Ray 06/23/19 11:37 IMPRESSION: NO RADIOGRAPHIC EVIDENCE OF ACUTE INJURY. - Vital Signs Vital signs: Temp Pulse Resp BP Pulse Ox 98.5 F 71 16 144/67 H 97 06/23/19 10:50 06/23/19 10:50 06/23/19 10:50 06/23/19 10:50 06/23/19 10:50 Discharge - Discharge Clinical Impression: Right index finger pain Condition: Stable Disposition: HOME, SELF-CARE Additional Instructions: Your x-ray here in the emergency department today was negative. Please continue to take ibuprofen for your pain. If the pain is severe please take one of the hydrocodone tablets that I have prescribed. Keep the splint in place if it is helping with your pain, you may remove it if it is causing discomfort. Follow- up with orthopedics as discussed, you can go to either Dr. Mcnamara or Dr. Chiang, they are both wonderful however Dr. Mcnamara is a hand specialist so he would probably be the first call I would make. I have given you contact info for both of them. Prescriptions: Hydrocodone Bit/Acetaminophen [Hydrocodon-Acetaminophen 5-325] 1 each PO Q6H #10 tablet Referrals: SANAM MCNAMARA, [ACTIVE STAFF] - Follow up as needed DEE CHIANG JR, DO [ACTIVE PROVISIONAL STAFF] - Follow up as needed
--- NOTE | 2019-06-23 12:08 | RADIOLOGY REPORT (SQ) ---
EXAM DESCRIPTION: FINGER RIGHT COMPLETED DATE/TIME: 06/23/2019 11:58 am REASON FOR STUDY: index finger locking up COMPARISON: None. NUMBER OF VIEWS: Three views. TECHNIQUE: AP, lateral, and oblique images acquired of the right second finger. LIMITATIONS: None. FINDINGS: MINERALIZATION: Normal. BONES: No acute fracture or dislocation. No significant joint space narrowing or bulky bony spurring . SOFT TISSUES: No soft tissue swelling. No foreign body. OTHER: No other significant finding. IMPRESSION: NO RADIOGRAPHIC EVIDENCE OF ACUTE INJURY. COMMENT: SITE OF TRAUMA/COMPLAINT MARKED/STAMP COMPLETED: Yes TECHNICAL DOCUMENTATION: JOB ID: [id number] [employer]- All Rights Reserved Reading location - IP/workstation name: [email or web address]
[2019-06-23 12:49] VITALS: BP 136/87
== END 2019-06-23 12:49 | disposition home or self-care (01) ==
LOC: ER 10:35
DX: M79.644 Pain in right finger(s) (principal)
CPT/HCPCS: 99283; 96372; 73140; J1885

== ENCOUNTER 2019-07-04 18:43 | Emergency (ER) | payer MEDICARE, OTHER, MEDICAID ==
[2019-07-04] MEDS ORDERED: IPRATROPIUM/ALBUTEROL 0.5-2.5 MG/3 ML AMPUL NEB ONE (20:04)
--- NOTE | 2019-07-04 20:07 | ER Document Report ---
ED Medical Screen (RME) - General Chief Complaint: Sore Throat Stated Complaint: SORE THROAT Time Seen by Provider: 07/04/19 19:59 TRAVEL OUTSIDE OF THE [place] IN LAST 30 DAYS: No - HPI Notes: 07/04/19 20:04 63-year-old female presents emergency room for complaints of having sore throat, productive cough that has become progressively worse over the last 4 days. Patient denies any fevers or chills. Has tried oyld-hak-[id number] Mucinex without relief. Denies a history of asthma, non-smoker. Worse with time, nothing makes better. Patient states she noticed she was wheezing yesterday. denies any ches t pain shortness of breath nausea vomiting diarrhea, body pains, headache I have greeted and performed a rapid initial assessment of this patient. A comprehensive ED assessment and evaluation of the patient, analysis of test results and completion of the medical decision making process will be conducted by additional ED providers. PHYSICAL EXAMINATION: GENERAL: Well-appearing, well-nourished and in no acute distress. HEAD: Atraumatic, normocephalic. EYES: Pupils equal round extraocular movements intact, conjunctiva are normal. NECK: Normal range of motion CV: s1, s2 regular LUNGS: Wheezing heard in upper lobes, no breath sounds heard in bilateral lower lobes Musculoskeletal: Normal range of motion NEUROLOGICAL: Normal speech, normal gait. SKIN: Warm, Dry, normal turgor, no rashes or lesions noted. - Related Data Allergies/Adverse Reactions: Penicillins Allergy (Verified 06/23/19 11:35) Past Medical History Renal/ Medical History: Denies: Hx Peritoneal Dialysis Past Surgical History: Reports: Hx Breast Surgery - left mastectomy - Immunizations Immunizations up to date: Yes Hx Diphtheria, Pertussis, Tetanus Vaccination: Yes - unknown Physical Exam - Vital signs Vitals: Temp Pulse Resp BP Pulse Ox 97.8 F 88 16 158/75 H 100 07/04/19 19:15 07/04/19 19:15 07/04/19 19:15 07/04/19 19:15 07/04/19 19:15 Course - Vital Signs Vital signs: Temp Pulse Resp BP Pulse Ox 97.8 F 88 16 158/75 H 100 07/04/19 19:15 07/04/19 19:15 07/04/19 19:15 07/04/19 19:15 07/04/19 19:15
--- NOTE | 2019-07-04 20:35 | RADIOLOGY REPORT (SQ) ---
EXAM DESCRIPTION: XR CHEST 2 VIEWS COMPLETED DATE/TME: 07/04/2019 20:04 CLINICAL HISTORY: 63 years, Female, productive cough, ST COMPARISON: None. NUMBER OF VIEWS: 2 TECHNIQUE: LIMITATIONS: None. FINDINGS: Cardiomediastinal silhouette is of normal size. Right subclavian power injectable port catheter tip is within SVC, satisfactory. The lungs are grossly clear. Postsurgical changes identified left breast and left axilla IMPRESSION: No evidence of active intrathoracic disease. copyright 2010 [employer]- All Rights Reserved
--- NOTE | 2019-07-04 23:55 | ER Document Report ---
ED Respiratory Problem - General Chief Complaint: Chest Congestion Stated Complaint: SORE THROAT Time Seen by Provider: 07/04/19 19:59 Primary Care Provider: VISHNU MARTINEZ MD [Primary Care Provider] - Follow up in 3-5 days Mode of Arrival: Ambulatory Information source: Patient Notes: 63-year-old female presented to ED for complaint of sore throat runny nose cough congestion for the last 4 days. She denies any fevers or chills. She states she has tried emvw-wxx-ogphlkr Mucinex with no relief. She does require occasionally. Patient is alert oriented respirations regular nonlabored in no acute distress. TRAVEL OUTSIDE OF THE [place] IN LAST 30 DAYS: No - HPI Patient complains to provider of: Asthma, Cough Onset: Other - 4 days Duration: Continuous Initiating Event: URI Quality of pain: Other - Sore throat Severity: Mild Pain Level: 1 Cough: Nonproductive Sputum amount: None Associated symptoms: Congestion, Cough, PND, Runny nose, Sinus pain/pressure, Sore Throat. denies: Fever Similar symptoms previously: Yes Recently seen / treated by doctor: No - Related Data Allergies/Adverse Reactions: Penicillins Allergy (Verified 06/23/19 11:35) Past Medical History - General Information source: Patient - Social History Smoking Status: Never Smoker Frequency of alcohol use: Occasional Drug Abuse: None Lives with: Family Family History: Reviewed & Not Pertinent Patient has suicidal ideation: No Patient has homicidal ideation: No - Past Medical History Cardiac Medical History: Reports: None Pulmonary Medical History: Reports: None EENT Medical History: Reports: None Neurological Medical History: Reports: None Endocrine Medical History: Reports: None Renal/ Medical History: Reports: None Malignancy Medical History: Reports: Hx Breast Cancer GI Medical History: Reports: None Musculoskeletal Medical History: Reports None Skin Medical History: Reports None Psychiatric Medical History: Reports: Hx Depression Traumatic Medical History: Reports: None Infectious Medical History: Reports: None Past Surgical History: Reports: Hx Breast Surgery - left mastectomy, Hx Hysterectomy, Hx Oral Surgery - [place] teeth - Immunizations Immunizations up to date: Yes Hx Diphtheria, Pertussis, Tetanus Vaccination: Yes - unknown Review of Systems - Review of Systems Constitutional: Recent illness EENT: Nose congestion, Nose discharge, Sinus discharge Cardiovascular: No symptoms reported Respiratory: Cough Gastrointestinal: No symptoms reported Genitourinary: No symptoms reported Female Genitourinary: No symptoms reported Musculoskeletal: No symptoms reported Skin: No symptoms reported Hematologic/Lymphatic: No symptoms reported Neurological/Psychological: No symptoms reported -: Yes All other systems reviewed and negative Physical Exam - Vital signs Vitals: Temp Pulse Resp BP Pulse Ox 97.8 F 88 16 158/75 H 100 07/04/19 19:15 07/04/19 19:15 07/04/19 19:15 07/04/19 19:15 07/04/19 19:15 Interpretation: Normal - General General appearance: Appears well, Alert - HEENT Head: Normocephalic, Atraumatic Eyes: Normal Pupils: PERRL Ears: Normal External canal: Normal Tympanic membrane: Normal Sinus: Normal Nasal: Purulent discharge, Swelling Mouth/Lips: Normal Mucous membranes: Normal Pharynx: Post nasal drainage Neck: Normal - Respiratory Respiratory status: No respiratory distress. No: Respiratory distress Chest status: Nontender. No: Tender Breath sounds: Nonproductive cough Chest palpation: Normal - Cardiovascular Rhythm: Regular Heart sounds: Normal auscultation Murmur: No - Abdominal Inspection: Normal Distension: No distension Bowel sounds: Normal Tenderness: Nontender Organomegaly: No organomegaly - Back Back: Normal, Nontender - Extremities General upper extremity: Normal inspection, Nontender, Normal color, Normal ROM, Normal temperature General lower extremity: Normal inspection, Nontender, Normal color, Normal ROM, Normal temperature, Normal weight bearing. No: Senthil's sign - Neurological Neuro grossly intact: Yes Cognition: Normal Orientation: AAOx4 Filippo Coma Scale Eye Opening: Spontaneous Filippo Coma Scale Verbal: Oriented Filippo Coma Scale Motor: Obeys Commands Filippo Coma Scale Total: 15 Speech: Normal Motor strength normal: LUE, RUE, LLE, RLE Sensory: Normal - Psychological Associated symptoms: Normal affect, Normal mood - Skin Skin Temperature: Warm Skin Moisture: Dry Skin Color: Normal Course - Re-evaluation Re-evalutation: 07/05/19 03:14 After performing a Medical Screening Examination, I estimate there is LOW risk for ACUTE CORONARY SYNDROME, RESPIRATORY FAILURE, SEPSIS OR MENINGITIS, thus I consider the discharge disposition reasonable. I have reevaluated this patient multiple times and no significant life threatening changes are noted. The patient and I have discussed the diagnosis and risks, and we agree with discharging home with close follow-up. We also discussed returning to the Emergency Department immediately if new or worsening symptoms occur. We have discussed the symptoms which are most concerning (e.g., changing or worsening pain, trouble swallowing or breathing, neck stiffness, fever) that necessitate immediate return. - Vital Signs Vital signs: Temp Pulse Resp BP Pulse Ox 98.0 F 76 16 165/84 H 100 07/04/19 23:57 07/04/19 23:57 07/04/19 19:15 07/04/19 23:57 07/04/19 23:57 Discharge - Discharge Clinical Impression: Viral sore throat URI (upper respiratory infection) Qualifiers: URI type: unspecified viral URI Qualified Code(s): J06.9 - Acute upper respiratory infection, unspecified Condition: Stable Disposition: HOME, SELF-CARE Additional Instructions: SORE THROAT: Sore throats may be caused by viruses, bacteria, or fungi. Most are due to a virus, and must get better on their own. Bacterial sore throats, particularly those due to "strep," need treatment with antibiotics. If an antibiotic is prescribed, be sure to take the medication for a full 10 days. Failure to take the antibiotic can result in complications such as rheumatic fever. Sometimes, an injection of antibiotics is given instead of pills or liquid. This single "shot" is equal in effectiveness to the oral medication. To relieve symptoms, take acetaminophen for pain. Sip clear liquids frequently, or eat popsicles or ice chips. Anesthetic sprays or lozenges may help. Make sure the air in the room is not too dry. Avoid using decongestants or antihistamines. Call the doctor if there is no improvement in two days, or if you have difficulty breathing, increasing throat pain, high fever, rash, or frequent vomiting. UPPER RESPIRATORY ILLNESS: You have a viral infection of the respiratory passages -- a "cold." This common infection causes nasal congestion, drainage, and often sore throat and cough. It is highly contagious. The disease usually lasts about 10 to 14 days. There is no "cure" for the viral infection -- it must run its course. If there is a complication, such as bacterial infection in the nose, sinuses, middle ear, or bronchial tubes, antibiotics may be required. The antibiotics won't affect the virus. Drink plenty of fluids. A humidifier may help. An expectorant medication or decongestant may make you more comfortable. Use acetaminophen or ibuprofen for fever or aches. See the doctor if fever persists over two days, if there is any significant worsening of your symptoms, or if you simply fail to improve as expected. You were recommended treatment with with Claritin 10 mg Sudafed 30 mg and Mucinex 600 mg. These are all qptc-vsa-xmeieti medications for cough cold congestion. You do need to call the go to the pharmacist to get the Sudafed from behind the counter please get a little red pills they are more effective. You could also use Flonase which is pqvb-klu-xfhxumi 1 spray each nostril twice a day. You could also use salt soda solution gargles. These will help to remove the drainage from the back your throat. Chloraseptic spray was tjvt-dcf-nqujvez that will also help with your sore throat. Salt and soda solution gargle 1 quart of water 1 tablespoon of salt 1 teaspoon of baking soda Mixed 3 ingredients together and boil for 1 minute Placed in a covered quart jar Use 1/2 ounce of cold solution to gargle 3 times a day COUGH-SUPPRESSANT & EXPECTORANT MEDICATION: You are to use a cough medication as needed for relief of symptoms. This medicine is a combination of an expectorant (to make the mucous thinner and more easily "coughed up") and a cough suppressant (to reduce the frequency of coughing). The cough-suppressant medicine is related to narcotics. You may experience mild nausea and sleepiness. Some patients who are very sensitive to narcotics may have stomach pain from this medicine. Taking the medicine with food reduces these side effects. Do not drive or work with machinery until you know how this medicine affects you. The expectorant should have no side effects. Iodine-containing expectorants (such as organidin) should not be taken by persons with active thyroid disease unless approved by your doctor. Call the doctor if you develop shortness of breath, hives, rash, itching, lightheadedness, or severe nausea and vomiting. USE OF ACETAMINOPHEN (Tylenol): Acetaminophen may be taken for pain relief or fever control. It's much safer than aspirin, offering a wider range of "safe" dosages. It is safe during . Some brand names are Tylenol, Panadol, Datril, Anacin 3, Tempra, and Liquiprin. Acetaminophen can be repeated every four hours. The following are maximum recommended dosages: >89 pounds or adults 650 mg to 900 mg Acetaminophen can be repeated every four hours. Maximum dose not to exceed 4000 mg a day. FOLLOW-UP CARE: If you have been referred to a physician for follow-up care, call the physicians office for an appointment as you were instructed or within the next two days. If you experience worsening or a significant change in your symptoms, notify the physician immediately or return to the Emergency Department at any time for re-evaluation. Forms: Elevated Blood Pressure Referrals: VISHNU MARTINEZ MD [Primary Care Provider] - Follow up in 3-5 days
[2019-07-04 23:59] VITALS: BP 165/84
== END 2019-07-04 23:59 | disposition home or self-care (01) ==
LOC: ER 18:43
DX: J02.8 Acute pharyngitis due to other specified organisms (principal); B97.89 Other viral agents as the cause of diseases classified elsewhere; R05 Cough; R09.81 Nasal congestion; R09.89 Other specified symptoms and signs involving the circulatory and respiratory systems; J45.909 Unspecified asthma, uncomplicated; R09.82 Postnasal drip; J34.89 Other specified disorders of nose and nasal sinuses; Z88.0 Allergy status to penicillin
CPT/HCPCS: 94640; 99283; 87070; 87880; 71046; A9270; J7620

== ENCOUNTER 2019-12-16 21:14 | Emergency (ER) | payer MEDICARE, OTHER, MEDICAID ==
[2019-12-16 22:21] VITALS: BP 127/69
== END 2019-12-16 23:48 | disposition left against medical advice (07) ==
LOC: ER 21:14
DX: Z53.21 Procedure and treatment not carried out due to patient leaving prior to being seen by health care provider (principal)

== ENCOUNTER → 2020-06-10 | Outpatient (CLI) | payer MEDICARE, OTHER, MEDICAID ==
--- NOTE | 2020-06-10 10:18 | WOMENS IMAGING REPORT ---
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 EXAM PARAMETERS: Standard craniocaudal and mediolateral oblique views of the breast recorded using d igital acquisition. Read with the assistance of CAD. .[facility] - [employer] Version 9.2 LIMITATIONS: None. FINDINGS: BREAST LATERALITY: right No suspicious masses, suspicious calcifications or architectural distortion. No areas of concern. IMPRESSION: NORMAL MAMMOGRAM. BIRADS 1. BREAST DENSITY: c. The breasts are heterogeneously dense, which may obscure small masses. BIRAD: ASSESSMENT: 1 NEGATIVE RECOMMENDATION: RECOMMENDATION: ROUTINE SCREENING. COMMENT: The patient has been notified of the results by letter per SA requirements. Additional no tification policies are in place for contacting patient with suspicious or incomplete findings. Quality ID #[id number]: The [employer] recommends an annual screening mammogram for women aged 40 years or over. This facility utilizes a reminder system to ensure that all patients receive reminder letters, and/or direct phone calls for appointments. This includes reminders for routine scr eening mammograms, diagnostic mammograms, or other Breast Imaging Interventions when appropriate. Th is patient will be placed in the appropriate reminder system. TECHNICAL DOCUMENTATION: FINDING NUMBER: (1) ASSESSMENT: (1) JOB ID: [id number] 2010 [employer]- All Rights Reserved Reading location - IP/workstation name: [email or web address]
== END ==
LOC: WI 07:00
PROVIDERS: ATTEND Nurse Practitioner Family
DX: Z12.31 Encounter for screening mammogram for malignant neoplasm of breast (principal); Z85.3 Personal history of malignant neoplasm of breast

== ENCOUNTER 2020-06-18 17:57 | Emergency (ER) | payer MEDICARE, OTHER, MEDICAID ==
[2020-06-18 18:32] VITALS: BP 151/72
[2020-06-18] MEDS ORDERED: PREDNISONE 20 MG TABLET PO ONE (18:59)
--- NOTE | 2020-06-18 19:05 | ER Document Report ---
HPI - HPI Patient complains to provider of: Skin rash Time Seen by Provider: 06/18/20 18:54 Onset: Other - 2 days Onset/Duration: Persistent Pain Level: Denies Context: Patient presents with a rash that started 2 days ago. Patient states lesions are pruritic. Patient states that she did recently stay at a relatives house but does state that they previously had bedbugs at their home. Patient states that she was told that their house had been treated. Patient denies any new foods medications or detergents. Associated Symptoms: denies: Fever, Headache Exacerbated by: Denies Relieved by: Denies Similar symptoms previously: No Recently seen / treated by doctor: No - ROS ROS below otherwise negative: Yes Systems Reviewed and Negative: Yes All other systems reviewed and negative - CONSTITUTIONAL Constitutional: DENIES: Fever - RESPIRATORY Respiratory: DENIES: Coughing - GASTROINTESTINAL Gastrointestinal: DENIES: Nausea, Patient vomiting - DERM Skin Color: Normal Skin Problems: Rash Past Medical History - General Information source: Patient - Social History Smoking Status: Never Smoker Frequency of alcohol use: None Drug Abuse: None Family History: Reviewed & Not Pertinent Renal/ Medical History: Denies: Hx Peritoneal Dialysis Malignancy Medical History: Reports: Hx Breast Cancer Psychiatric Medical History: Reports: Hx Depression Past Surgical History: Reports: Hx Breast Surgery - left mastectomy, Hx Hysterectomy, Hx Oral Surgery - [place] teeth - Immunizations Immunizations up to date: Yes Hx Diphtheria, Pertussis, Tetanus Vaccination: Yes - unknown Vertical Provider Document - CONSTITUTIONAL Agree With Documented VS: Yes Exam Limitations: No Limitations General Appearance: WD/WN, No Apparent Distress - INFECTION CONTROL TRAVEL OUTSIDE OF THE [place] IN LAST 30 DAYS: No - HEENT HEENT: Atraumatic, Normal ENT Exam, Normocephalic - NECK Neck: Normal Inspection, Supple - RESPIRATORY Respiratory: Breath Sounds Normal, No Respiratory Distress - CARDIOVASCULAR Cardiovascular: Regular Rate, Regular Rhythm - BACK Back: Normal Inspection - MUSCULOSKELETAL/EXTREMETIES Musculoskeletal/Extremeties: MAEW - NEURO Level of Consciousness: Awake, Alert, Appropriate Motor/Sensory: No Motor Deficit - DERM Integumentary: Warm, Dry, Rash - Scattered erythematous maculopapular lesions to upper extremity and trunk, lesions clustered in small groups some of them in a linear pattern Course - Re-evaluation Re-evalutation: 06/18/20 19:12 Patient with skin lesions worrisome for possible bedbug bites. Patient encouraged to check home for any infestation. We will treat symptomatically at this time, good return precautions discussed with patient. - Vital Signs Vital signs: Temp Pulse Resp BP Pulse Ox 98.2 F 81 16 151/72 H 100 06/18/20 18:30 06/18/20 18:30 06/18/20 18:30 06/18/20 18:30 06/18/20 18:30 - Laboratory Results Critical Laboratory Results Reviewed: No Critical Results - Radiology Results Critical Radiology Results Reviewed: No Critical Results Discharge - Discharge Clinical Impression: Skin rash Condition: Stable Disposition: HOME, SELF-CARE Instructions: Insect Bites ([facility]), Steroid Medication, Topical Steroid Cream or Ointment ([facility]), Use of Diphenhydramine Additional Instructions: Return immediately for any new or worsening symptoms Followup with your primary care provider, call tomorrow to make a followup appointment Prescriptions: Prednisone [Deltasone 10 mg Tablet] 10 mg PO ASDIR #21 tablet Referrals: ESTEFANI PURCELL FNP-C [Primary Care Provider] - Follow up as needed
== END 2020-06-18 19:07 | disposition home or self-care (01) ==
LOC: ER 17:57
DX: R21 Rash and other nonspecific skin eruption (principal); Z85.3 Personal history of malignant neoplasm of breast
CPT/HCPCS: 99283; A9270; J7512

== ENCOUNTER 2020-06-24 07:15 | Emergency (ER) | payer MEDICARE, OTHER, MEDICAID ==
[2020-06-24 07:32] VITALS: BP 163/76
== END 2020-06-24 09:16 | disposition left against medical advice (07) ==
LOC: ER 07:15
DX: Z53.21 Procedure and treatment not carried out due to patient leaving prior to being seen by health care provider (principal)